=== PATIENT | female | born 1935 | race Caucasian/White ===

== ENCOUNTER 2018-01-30 12:48 | Outpatient (CLI) | payer MEDICARE, BC | END 2018-01-30 12:49 | disposition home or self-care (01) | LOC: BICMAMMO 12:48 | PROVIDERS: ATTEND Internal Medicine Geriatric Medicine | DX: M85.852 Other specified disorders of bone density and structure, left thigh; M85.80 Other specified disorders of bone density and structure, unspecified site | CPT/HCPCS: 77080 ==

== ENCOUNTER 2019-12-29 12:41 | Outpatient (CLI) | payer MEDICARE, BC ==
--- NOTE | 2019-12-29 13:34 | MMO ---
Bilateral MAMMO Bilat Screen [facility]. CLINICAL HISTORY: Patient is 84 years old and is seen for screening. The patient has the following family history of breast cancer: sister. The patient has no personal history of cancer. VIEWS: The views performed were: bilateral craniocaudal with tomosynthesis and bilateral mediolateral oblique with tomosynthesis. FILMS COMPARED: The present examination has been compared to prior imaging studies performed at [facility] on 04/01/2014, 04/06/2015, 06/13/2016 and 08/15/2017. This study has been interpreted with the assistance of computer-aided detection. MAMMOGRAM FINDINGS: There are scattered fibroglandular densities. Benign calcifications are noted bilaterally. There are no suspicious masses, suspicious calcifications, or new areas of architectural distortion. IMPRESSION: THERE IS NO MAMMOGRAPHIC EVIDENCE OF MALIGNANCY. A ROUTINE FOLLOW-UP MAMMOGRAM IN 1 YEAR IS RECOMMENDED. THE RESULTS OF THIS EXAM WERE SENT TO THE PATIENT. ACR BI-RADS Category 2 - Benign finding MAMMOGRAPHY NOTE: 1. A negative mammogram report should not delay a biopsy if a dominant of clinically suspicious mass is present. 2. Approximately 10% to 15% of breast cancers are not detected by mammography. 3. Adenosis and dense breasts may obscure an underlying neoplasm. Reported by: MAX VO MD Electonically Signed: [id number]
== END 2019-12-29 12:42 | disposition home or self-care (01) ==
LOC: BICMAMMO 12:41
PROVIDERS: ATTEND Family Medicine
DX: Z12.31 Encounter for screening mammogram for malignant neoplasm of breast (principal); Z80.3 Family history of malignant neoplasm of breast
CPT/HCPCS: 77063; 77067

== ENCOUNTER 2020-03-01 13:17 | Outpatient (CLI) | payer MEDICARE, BC ==
--- NOTE | 2020-03-01 14:12 | BD ---
DEXA BONE DENSITY SCAN: DATE: 03/01/2020. HISTORY: Postmenopausal female undergoing screening for osteoporosis. FINDINGS: Lumbar Spine: BMD (g/cm2) L1 0.935 T-Score: -0.5 L2 1.310 T-Score: 2.6 L3 1.527 T-Score: 4.0 L4 1.432 T-Score: 3.4 L1-L4 1.305 T-Score: 2.3 Femoral Neck: 0.688 T-Score: -1.5 Total Femur: 0.785 T-Score: -1.3 FRAX-WHO fracture risk assessment tool reports a 10-year fracture risk in an untreated patient at 9.9 % for major osteoporotic fracture and 2.8% for a hip fracture. Impression: Osteopenia within the femoral neck, correlating with a moderately increased risk for fracture. Lumba r spine bone mineral density appears normal, likely artificially elevated on the basis of degenerativ e change. POS: [facility]
== END 2020-03-01 13:18 | disposition home or self-care (01) ==
LOC: BICMAMMO 13:17
PROVIDERS: ATTEND Family Medicine
DX: Z13.820 Encounter for screening for osteoporosis (principal); Z78.0 Asymptomatic menopausal state; M85.859 Other specified disorders of bone density and structure, unspecified thigh
CPT/HCPCS: 77080

== ENCOUNTER 2020-08-19 12:30 | Outpatient (CLI) | payer MEDICARE, BC ==
--- NOTE | 2020-08-19 13:39 | CT ---
ABDOMEN CT WITH CONTRAST PELVIC CT WITH CONTRAST 08/19/20 HISTORY: Urinary frequency. The patient feels like she has a urinary tract infection. FINDINGS: ABDOMEN CT: Lung bases are clear. Nonspecific opacity in the lingula measures 0.7 cm. Normal heart size. No significant pericardial effusion. Limited evaluation of the solid organs by the absence of IV contrast. Grossly no solid organ abnormal ity. No gastrohepatic, retrocrural or periportal lymphadenopathy. No mesenteric mass, lymphadenopathy, free air or free fluid. Limited e valuation of the alimentary ca nal by lack of oral contrast. There does appear to be mucosal thickening involving the body and antr um of the stomach. Multiple normal caliber small bowel loops. There is some nonspecific fecalization involving decompressed ileal loops. 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 I f there is concern for a bowel obstruction, consider gastrografin small bowel follow through. There i s scattered fecal material throughout the colon. No obvious colon wall mucosal abnormality. Evaluatio n of the colon is limited due to technique. Colonoscopy can be performed if there is concern. There are bilateral nonobstructing intrarenal calculi. There is a cluster of calcifications in the lo wer pole of the right kidney. Four separate calcifications line up and measure approximately 1 cm. No evidence of left sided obstructive uropathy. Unremarkable gallbladder. There is evidence of appendicolith. No evidence of inflammatory change of t he appendix. Appendix has a normal caliber. PELVIC CT: Urinary bladder does not demonstrate any calculi. No pelvic mass, lymphadenopathy, free air or free f luid. Presacral fat is preserved. Uterus is surgically absent. Rightward curvature of the lumbar spine. Multilevel degenerative disc disease with vacuum disc phenom enon. IMPRESSION: 1. Bilateral nonobstructing intrarenal calculi. Bilaterally, no evidence of obstructive uropathy . 2. Mucosal thickening involving the gastric antrum. Fecalization of small bowel loops. Consider gastrografin small bowel study to better evaluate the small bowel and exclude a possible obstruction. 3. Mucosal thickening involving the colon, incompletely evaluated. Colonoscopy if clinically war ranted. POS: [facility]
== END 2020-08-19 12:31 | disposition home or self-care (01) ==
LOC: BICCT 12:30
PROVIDERS: ATTEND Family Medicine
DX: R35.0 Frequency of micturition (principal); N20.0 Calculus of kidney; K63.89 Other specified diseases of intestine; K31.89 Other diseases of stomach and duodenum
CPT/HCPCS: 74176

== ENCOUNTER 2020-09-09 22:48 | Emergency (ER) | payer MEDICARE, BC ==
--- NOTE | 2020-09-09 23:34 | CT ---
CT head noncontrast HISTORY: Fall. Injury. FINDINGS: There is no evidence of acute intracranial hemorrhage or infarct. Mild diffuse cortical atr ophy and chronic ischemic small vessel disease. There is no mass effect or shift of midline structures. Visualized paranasal sinuses remain well aerated. Soft tissue scalp injury overlies the posterior satinder vincent. IMPRESSION : No acute intracranial abnormalities are demonstrated.
[2020-09-10] MEDS ORDERED: Boostrix 0.5 ML (Tdap) VIAL ONE (00:21)
== END 2020-09-10 00:40 | disposition home or self-care (01) ==
LOC: ERS 22:48
DX: S01.01XA Laceration without foreign body of scalp, initial encounter (principal); I10 Essential (primary) hypertension; H81.09 Meniere's disease, unspecified ear; Z79.899 Other long term (current) drug therapy; Z23 Encounter for immunization; W19.XXXA Unspecified fall, initial encounter; Y92.009 Unspecified place in unspecified non-institutional (private) residence as the place of occurrence of the external cause
CPT/HCPCS: 12001; 70450; 90471; 90715

== ENCOUNTER 2021-02-08 12:42 | Outpatient (CLI) | payer MEDICARE, BC | END 2021-02-08 12:43 | disposition home or self-care (01) | LOC: BICMAMMO 12:42 | PROVIDERS: ATTEND Family Medicine | DX: Z12.31 Encounter for screening mammogram for malignant neoplasm of breast (principal); Z80.3 Family history of malignant neoplasm of breast | CPT/HCPCS: 77063; 77067 ==

== ENCOUNTER 2021-11-29 15:01 | Outpatient (CLI) | payer MEDICARE, BC | END 2021-11-29 15:02 | disposition home or self-care (01) | LOC: SCSRAD 15:01 | PROVIDERS: ATTEND Physician Assistant | DX: R06.02 Shortness of breath (principal); R09.02 Hypoxemia | CPT/HCPCS: 36415; 71046; 80053; 81015; 83880; 85025; 85379; 87077; 87086; 87186 ==

== ENCOUNTER 2021-11-29 19:05 | Inpatient (IN) | payer MEDICARE, BC ==
[2021-11-29 20:46] LABS: Bilirubin Small (Negative); Blood, Urine Large (Negative); Glucose, Urine (Dipstick) 100 mg/dL (Negative); Ketone, Urine Trace mg/dL (Negative); Leukocyte Moderate (Negative); Nitrite Positive (Negative); Protein, Urine (Dipstick) 100 mg/dL (Neg-Trace)
[2021-11-29 20:49] LABS: Clarity Extra Turbid (Clear)
[2021-11-29 20:53] LABS: Bacteria/HPF 1+ HPF (None Seen); WBC/HPF Greater than 50 HPF (0-3)
[2021-11-29 21:02] LABS: Hemoglobin 11.5 g/dL (12.0-16.0); Mean Corpuscular HGB CONC 32.3 g/dL (32.0-36.0); Mean Corpuscular Hemoglobin 36.2 pg (27.0-31.0); Mean Platelet Volume 7.7 fL (7.4-10.4); Platelet Count 432 thou/uL (130-400); RBC Distribution Width 22.3 % (11.5-14.5); Red Blood Cell (RBC) Count 3.18 mill/uL (4.20-5.40); White Blood Cell (WBC) Count 19.1 thou/uL (4.8-10.8)
[2021-11-29] MEDS ORDERED: cefTRIAXone\\ROCEPHIN 1 GM VIAL ONE (21:10)
[2021-11-29 21:11] LABS: ALT (SGPT) 18 U/L (8-55); AST (SGOT) 25 U/L (5-34); Albumin 3.8 g/dL (3.4-4.8); Alkaline Phosphatase 50 U/L (40-110); Anion Gap 12 mmol/L (10-20); BUN (Urea Nitrogen) 35 mg/dL (9.8-20.1); Bilirubin, Total 0.5 mg/dL (0.2-1.2); Calc. Creatinine Clearance 0 mL/min (70-130); Calcium 8.6 mg/dL (7.8-10.44); Carbon Dioxide 19 mmol/L (23-31); Chloride 107 mmol/L (98-107); Globulin 2.8 g/dL (2.4-3.5); Glucose 94 mg/dL (83-110); Potassium 3.2 mmol/L (3.5-5.1); Protein, Total 6.6 g/dL (5.8-8.1); Sodium 135 mmol/L (136-145)
[2021-11-29 21:51] LABS: #Basophils 0.1 thou/uL (0.0-0.2); #Eosinphils 0.1 thou/uL (0.0-0.7); #Lymphocytes 1.9 thou/uL (1.20-3.40); #Monocytes 0.8 thou/uL (0.11-0.59); #Neutrophils 16.2 thou/uL (1.40-6.50); %Basophils 0.3 % (0.0-1.0); %Eosinophils 0.7 % (0.0-10.0); %Lymphocytes 9.7 % (21.0-51.0); %Monocytes 4.3 % (0.0-10.0); %Neutrophils 84.9 % (42.0-75.0); Anisocytosis MODERATE=16-30 cells (100X) (0-5/hpf); MDiff Complete? YES; Macrocytosis SLIGHT = 6-15 cells (100X) (0-5/hpf); Polychromasia SLIGHT = 2-3 cells (100X) (0-2/hpf)
[2021-11-29] MEDS ORDERED: Vancomycin 1 GM/200 ML BAG ONE (22:23)
[2021-11-30] VITALS: BMI 16.5
[2021-11-30] MEDS: Sodium Chloride 0.9% 1,000 ML IV SCH ×2 (00:06→19:49)
[2021-11-30] MEDS ORDERED: Ondansetron ODT 4 MG TAB PO PRN (05:22)
[2021-11-30] MEDS ORDERED: Acetaminophen 650 MG Suppository PR PRN (05:22)
[2021-11-30] MEDS ORDERED: Acetaminophen 325 MG TAB PO PRN (05:22)
[2021-11-30] MEDS ORDERED: Ondansetron PF 4 MG/2 ML Vial IVP PRN (05:22)
[2021-11-30] MEDS ORDERED: Sodium Chloride 0.9% 1,000 ML IV SCH (05:30)
[2021-11-30] MEDS ORDERED: Electrolyte Replacement Protocol 1 EACH FS PRN (05:30)
[2021-11-30] MEDS ORDERED: Potassium Chloride 20 MEQ in Premix Bag 1 BAG IVPB SCH (05:45)
[2021-11-30 08:17] LABS: Hemoglobin 11.3 g/dL (12.0-16.0); Mean Corpuscular HGB CONC 31.4 g/dL (32.0-36.0); Mean Corpuscular Hemoglobin 35.1 pg (27.0-31.0); Mean Platelet Volume 7.8 fL (7.4-10.4); Platelet Count 408 thou/uL (130-400); RBC Distribution Width 22.5 % (11.5-14.5); Red Blood Cell (RBC) Count 3.22 mill/uL (4.20-5.40); White Blood Cell (WBC) Count 12.6 thou/uL (4.8-10.8)
[2021-11-30 08:30] LABS: Anion Gap 12 mmol/L (10-20); BUN (Urea Nitrogen) 22 mg/dL (9.8-20.1); Calc. Creatinine Clearance 26 mL/min (70-130); Calcium 7.4 mg/dL (7.8-10.44); Carbon Dioxide 15 mmol/L (23-31); Chloride 113 mmol/L (98-107); Glucose 94 mg/dL (83-110); Magnesium 2.3 mg/dL (1.6-2.6); Potassium 3.3 mmol/L (3.5-5.1); Sodium 137 mmol/L (136-145)
[2021-11-30] MEDS: Cefepime 2 GM in Sodium Chloride 0.9% 100 ML IVPB SCH ×2 (08:44→20:44)
[2021-11-30] MEDS: Enoxaparin Sodium 30 MG/0.3 ML SYRINGE SC SCH (08:46)
[2021-11-30] MEDS ORDERED: Potassium Chloride 20 MEQ TAB PO SCH (09:00)
[2021-11-30] MEDS ORDERED: VANCOMYCIN 1.25 GM/250 ML BAG 1.25 GM in Premix Bag 1 BAG IVPB SCH (09:00)
[2021-11-30] MEDS ORDERED: Cefepime 2 GM in Sodium Chloride 0.9% 100 ML IVPB SCH (09:00)
[2021-11-30 09:01] LABS: Band 37 % (5-11); Lymphocytes 14 % (21-51); MDiff Complete? YES; Macrocytosis MODERATE=16-30 cells (100X) (0-5/hpf); Monocytes 6 % (0-10); Neutrophil 42 % (42-75); Platelet Morphology Comment Appears Increased; Polychromasia MODERATE = 3-4 cells (100X) (0-2/hpf); Reactive Lymphocytes 1 % (0-10)
[2021-11-30] MEDS ORDERED: 1/2 NS w/KCL 20 mEq 1,000 ML IV SCH (10:15)
[2021-11-30] MEDS ORDERED: Vancomycin HCl 750 MG in Sodium Chloride 0.9% 250 ML 250 ML IVPB SCH (12:15)
[2021-11-30] MEDS ORDERED: Docusate 100 MG CAP PO PRN (16:23)
[2021-11-30] MEDS ORDERED: Polyethylene Glycol 3350 17 GM Packet PO PRN (16:23)
[2021-12-01 06:44] LABS: Anion Gap 11 mmol/L (10-20); BUN (Urea Nitrogen) 18 mg/dL (9.8-20.1); Calc. Creatinine Clearance 25 mL/min (70-130); Calcium 7.5 mg/dL (7.8-10.44); Carbon Dioxide 17 mmol/L (23-31); Chloride 117 mmol/L (98-107); Glucose 81 mg/dL (83-110); Potassium 3.5 mmol/L (3.5-5.1); Sodium 141 mmol/L (136-145)
[2021-12-01 07:06] LABS: Band 23 % (5-11); Eosinophils 5 % (0-10); Hemoglobin 11.1 g/dL (12.0-16.0); Lymphocytes 15 % (21-51); MDiff Complete? YES; Macrocytosis SLIGHT = 6-15 cells (100X) (0-5/hpf); Mean Corpuscular HGB CONC 31.2 g/dL (32.0-36.0); Mean Corpuscular Hemoglobin 35.3 pg (27.0-31.0); Mean Platelet Volume 7.7 fL (7.4-10.4); Monocytes 8 % (0-10); Myelocyte 3 % (0-0); Neutrophil 46 % (42-75); Platelet Count 374 thou/uL (130-400); RBC Distribution Width 22.4 % (11.5-14.5); Red Blood Cell (RBC) Count 3.14 mill/uL (4.20-5.40); White Blood Cell (WBC) Count 7.6 thou/uL (4.8-10.8)
[2021-12-01] MEDS ORDERED: Potassium Chloride 20 MEQ TAB PO SCH (08:00)
[2021-12-01] MEDS: Aspirin 81 mg Enteric Coated Tablet PO SCH (10:03)
[2021-12-01] MEDS: Enoxaparin Sodium 30 MG/0.3 ML SYRINGE SC SCH (10:04)
[2021-12-01] MEDS: Polyethylene Glycol 3350 17 GM Packet PO SCH (10:06)
[2021-12-01] MEDS ORDERED: Furosemide 40 MG TAB PO SCH (14:30)
[2021-12-01] MEDS ORDERED: cefTRIAXone\\ROCEPHIN 1 GM in Sodium Chloride 0.9% 100 ML IVPB SCH (17:00)
[2021-12-01] MEDS ORDERED: Cefepime 2 GM in Sodium Chloride 0.9% 100 ML IVPB SCH (20:00)
[2021-12-01] MEDS ORDERED: Atorvastatin Calcium 10 MG TAB PO SCH (21:00)
[2021-12-02] MEDS: Polyethylene Glycol 3350 17 GM Packet PO SCH (05:33)
[2021-12-02 06:14] LABS: #Basophils 0.1 thou/uL (0.0-0.2); #Eosinphils 0.4 thou/uL (0.0-0.7); #Lymphocytes 1.3 thou/uL (1.20-3.40); #Monocytes 0.6 thou/uL (0.11-0.59); #Neutrophils 4.6 thou/uL (1.40-6.50); %Basophils 0.9 % (0.0-1.0); %Eosinophils 5.1 % (0.0-10.0); %Lymphocytes 18.8 % (21.0-51.0); %Monocytes 8.4 % (0.0-10.0); %Neutrophils 66.8 % (42.0-75.0); Hemoglobin 10.7 g/dL (12.0-16.0); Mean Corpuscular HGB CONC 31.2 g/dL (32.0-36.0); Mean Corpuscular Hemoglobin 35.1 pg (27.0-31.0); Mean Platelet Volume 7.9 fL (7.4-10.4); Platelet Count 349 thou/uL (130-400); RBC Distribution Width 22.4 % (11.5-14.5); Red Blood Cell (RBC) Count 3.05 mill/uL (4.20-5.40); White Blood Cell (WBC) Count 6.9 thou/uL (4.8-10.8)
[2021-12-02 06:34] LABS: Anion Gap 11 mmol/L (10-20); BUN (Urea Nitrogen) 15 mg/dL (9.8-20.1); Calc. Creatinine Clearance 26 mL/min (70-130); Calcium 7.7 mg/dL (7.8-10.44); Carbon Dioxide 20 mmol/L (23-31); Chloride 111 mmol/L (98-107); Glucose 84 mg/dL (83-110); Potassium 3.5 mmol/L (3.5-5.1); Sodium 138 mmol/L (136-145)
[2021-12-02] MEDS ORDERED: Potassium Chloride 20 MEQ TAB PO SCH (08:00)
[2021-12-02] MEDS: Aspirin 81 mg Enteric Coated Tablet PO SCH (08:23)
[2021-12-02 08:57] VITALS: BP 120/68; TEMP 97.7
[2021-12-02] MEDS ORDERED: Furosemide 40 MG TAB PO SCH (09:00)
[2021-12-02] MEDS ORDERED: Trospium 20 MG TAB PO SCH (09:00)
== END 2021-12-02 11:13 | disposition home or self-care (01) | DRG 872 ==
LOC: ERS 19:05 → MSONC 21:48
PROVIDERS: ADMIT Student in an Organized Health Care Education/Training Program; ATTEND Family Medicine
DX: A41.9 Sepsis, unspecified organism (principal); N30.00 Acute cystitis without hematuria; J90 Pleural effusion, not elsewhere classified; E87.2 Acidosis; N18.30 Chronic kidney disease, stage 3 unspecified; N32.81 Overactive bladder; E87.6 Hypokalemia; M81.0 Age-related osteoporosis without current pathological fracture; E78.5 Hyperlipidemia, unspecified; K21.9 Gastro-esophageal reflux disease without esophagitis; I12.9 Hypertensive chronic kidney disease with stage 1 through stage 4 chronic kidney disease, or unspecified chronic kidney disease; Z96.611 Presence of right artificial shoulder joint; K59.00 Constipation, unspecified; E87.8 Other disorders of electrolyte and fluid balance, not elsewhere classified; Z98.890 Other specified postprocedural states; Z79.899 Other long term (current) drug therapy; Z79.82 Long term (current) use of aspirin
CPT/HCPCS: 36415; 71275; 74176; 80048; 81003; 81015; 83605; 83735; 83880; 85025; 85379; 87040; 87086; 93005; 96365; 96366; 96368; J0692; J0696; J1650; J3370; J3490; J7050

== ENCOUNTER 2022-03-14 13:53 | Outpatient (CLI) | payer MEDICARE, BC | END 2022-03-14 13:54 | disposition home or self-care (01) | LOC: BICMAMMO 13:53 | PROVIDERS: ATTEND Physician Assistant | DX: Z12.31 Encounter for screening mammogram for malignant neoplasm of breast (principal); Z78.0 Asymptomatic menopausal state; M85.89 Other specified disorders of bone density and structure, multiple sites; Z80.3 Family history of malignant neoplasm of breast | CPT/HCPCS: 77063; 77067; 77080 ==

== ENCOUNTER 2024-12-05 18:14 | Emergency (ER) | payer MEDICARE, BC ==
[2024-12-05 18:55] LABS: #Basophils 0.06 10x3/uL (0.0-0.2); %Basophils 0.4 % (0.0-1.0); %Eosinophils 0.6 % (0.0-10.0); %Lymphocytes 5.6 % (21.0-51.0); %Monocytes 1.8 % (0.0-10.0); %Neutrophils 90.7 % (42.0-75.0); Hematocrit 34.7 % (36.0-47.0); Hemoglobin 11.1 g/dL (12.0-16.0); Mean Corpuscular Hemoglobin 36.8 pg (27.0-31.0); Mean Corpuscular Volume 114.9 fL (78.0-98.0); Mean Platelet Volume 10.3 fL (7.4-10.4); Platelet Count 387 10x3/uL (130-400); RBC Distribution Width 21.7 % (11.5-14.5); Red Blood Cell (RBC) Count 3.02 mill/uL (4.20-5.40)
[2024-12-05 19:02] LABS: Bacteria/HPF None Seen HPF (None Seen); Bilirubin Negative (Negative); Blood, Urine Negative (Negative); CAUTI Indications for Culture Dysuria,urgency,freq; Clarity Clear (Clear); Glucose, Urine (Dipstick) Normal (Negative); Ketone, Urine Trace mg/dL (Negative); Leukocyte Negative Leu/uL (Negative); Nitrite Negative (Negative); Protein, Urine (Dipstick) 20 mg/dL (Neg-Trace); RBC/HPF 0-3 HPF (0-3); Specific Gravity, Urine 1.017 (1.002-1.036); Squamous Epithelial 0-3 HPF (0-3); Urobilinogen Normal mg/dL (Less than 2); WBC/HPF 0-3 HPF (0-3)
[2024-12-05 19:05] LABS: Urine Culture Reflex No No
[2024-12-05 19:06] LABS: ALT (SGPT) 25 U/L (Less than 34); AST (SGOT) 29 U/L (11-34); Albumin 2.9 g/dL (3.1-4.5); Alkaline Phosphatase 62 U/L (40-110); Anion Gap 18 mmol/L (10-20); BUN (Urea Nitrogen) 38 mg/dL (9.8-20.1); Calc. Creatinine Clearance 0 mL/min (70-130); Calcium 8.5 mg/dL (7.8-10.44); Carbon Dioxide 20 mmol/L (23-31); Chloride 99 mmol/L (98-107); Estimated GFR 42; Glucose 105 mg/dL (83-110); Potassium 4.9 mmol/L (3.5-5.1); Protein, Total 6.9 g/dL (5.8-8.1); Sodium 132 mmol/L (136-145)
[2024-12-05 19:21] LABS: Anisocytosis SLIGHT = 6-15 cells HPF (0-5); Burr Cells SLIGHT = 2-5 cells HPF (0-1); Macrocytosis MODERATE=16-30 cells HPF (0-5); Platelet Adequacy Comment Platelets Normal; Polychromasia MODERATE = 3-4 cells HPF (0-2)
[2024-12-05] MEDS ORDERED: Ketorolac Tromethamine 30 MG (1 mL) VIAL ONE (19:28)
== END 2024-12-05 19:58 | disposition home or self-care (01) ==
LOC: ERS 18:14
DX: M47.812 Spondylosis without myelopathy or radiculopathy, cervical region (principal); T50.Z95A Adverse effect of other vaccines and biological substances, initial encounter; D64.9 Anemia, unspecified; Z79.899 Other long term (current) drug therapy
CPT/HCPCS: 72125; 80053; 81001; 85025; J1885; 36415; 96372

== ENCOUNTER 2025-06-10 11:14 | Outpatient (CLI) | payer MEDICARE, BC | END 2025-06-10 11:15 | disposition home or self-care (01) | LOC: BICRAD 11:14 | PROVIDERS: ATTEND Family Medicine | DX: R50.9 Fever, unspecified (principal) | CPT/HCPCS: 71046 ==

== ENCOUNTER 2025-06-24 11:19 | Outpatient (CLI) | payer MEDICARE, BC | END 2025-06-24 11:20 | disposition home or self-care (01) | LOC: BICMAMMO 11:19 | PROVIDERS: ATTEND Family Medicine | DX: Z12.31 Encounter for screening mammogram for malignant neoplasm of breast (principal); L03.115 Cellulitis of right lower limb; Z80.3 Family history of malignant neoplasm of breast | CPT/HCPCS: 77063; 77067 ==